=== PATIENT | male | born 1935 | race Hispanic/Latino ===

== ENCOUNTER 2018-12-14 11:36 | Emergency (ER) | payer MEDICARE ==
[2018-12-14 11:36] VITALS: BMI 27.1
[2018-12-14 11:41] VITALS: BP 178/89; PULSE 103; RESP 18; TEMP 97
[2018-12-14 11:51] VITALS: O2SAT 98
[2018-12-14] MEDS ORDERED: Tetanus/Diphtheria Toxoids 0.5 ml Syringe IM ONE ×2 (12:15→12:47)
--- NOTE | 2018-12-14 12:57 | ED PDOC ---
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 Denies LOC, N/V, neck pain, extremity pain, chest pain, abd pain, anticoagulant use. Past Medical History Reviewed: Historical Data, Nursing Documentation, Vital Signs Vital Signs: Last Vital Signs Temp 97 F L 12/14/18 11:40 Pulse 103 H 12/14/18 11:40 Resp 18 12/14/18 11:40 BP 178/89 H 12/14/18 11:40 Pulse Ox 98 12/14/18 11:48 - Medical History PMH: HTN, Hypercholesterolemia Denies: Chronic Kidney Disease - Surgical History Surgical History: No Surg Hx - Family History Family History: States: No Known Family Hx - Home Medications Home Medications: Ambulatory Orders Medication Instructions Recorded Aspirin [Ecotrin] 81 mg PO DAILY 01/05/18 Flaxseed Oil [Natural Flax Seed 1,000 mg PO DAILY 01/05/18 Oil] Losartan [Cozaar] 50 mg PO DAILY 01/05/18 Sheridan-3 Fatty Acids/Fish Oil [Fish 1 each PO DAILY 01/05/18 Oil 1,000 mg Capsule] Rosuvastatin Calcium [Crestor] 10 mg PO DAILY 01/05/18 Tamsulosin [Flomax] 0.4 mg PO DAILY 01/05/18 Ubiquinol [Active-Q] 200 mg PO DAILY 01/05/18 Amoxicillin/Clavulanate [Augmentin 1 tab PO BID #20 tab 12/14/18 500 MG-125 MG] - Allergies Allergies/Adverse Reactions: Allergies Allergy/AdvReac Type Severity Reaction Status Date / Time No Known Allergies Allergy Verified 12/14/18 11:48 Review of Systems ROS Statement: Except As Marked, All Systems Reviewed And Found Negative Physical Exam - Physical Exam Appears: Positive for: Well, Non-toxic, No Acute Distress Head Exam: Positive for: ATRAUMATIC, NORMAL INSPECTION, NORMOCEPHALIC Skin: Positive for: Normal Color, Warm. Negative for: Rash Eye Exam: Positive for: EOMI, Normal appearance, PERRL ENT: Positive for: TM Is/Are (no hemotympanum b/l), Other (nasal bone with tenderness, deformity and 1cm jagged laceration; no septal hematoma b/l; R maxillary 1st tooth is completely avulsed (pt states this is a prosthetic tooth) - pt. was given tooth ) Neck: Positive for: Normal, Painless ROM, Supple Cardiovascular/Chest: Positive for: Regular Rate, Rhythm, Chest Non Tender Respiratory: Positive for: Normal Breath Sounds Gastrointestinal/Abdominal: Positive for: Soft. Negative for: Tenderness Back: Positive for: Normal Inspection. Negative for: L CVA Tenderness, R CVA Tenderness, Vertebral Tenderness (including C-spine) Neurological/Psych: Positive for: Awake, Alert, Oriented (x3), Gait (steady, unassisted) - ECG O2 Sat by Pulse Oximetry: 98 Medical Decision Making Medical Decision Makin:[address] [place], [facility] [place] and requests patient follow up in his office tomorrow. He requests patient be prescribed Augmentin. Patient given CD copy of CT and advised to follow up in Dr. Hahn office tomorrow morning without fail. Patient verbalized correct understanding of follow up and care. Scribe Attestation: Documented by Sergio Adkins acting as a scribe for Chauncey ROBLES. Provider Scribe Attestation: All medical record entries made by the Scribe were at my direction and personally dictated by me. I have reviewed the chart and agree that the record accurately reflects my personal performance of the history, physical exam, medical decision making, and the department course for this patient. I have also personally directed, reviewed, and agree with the discharge instructions and disposition. Disposition - Clinical Impression Clinical Impression: Facial fracture, Nasal fracture, Head injury, Facial laceration - Patient ED Disposition Is Patient to be Admitted: No - Disposition Referrals: Tanner Mcdaniel MD [Staff Provider] - [facility] [Outside] Disposition: Routine/Home Disposition Time: 14:36 Condition: STABLE Additional Instructions: FOLLOW UP WITH YOUR PMD OR DR. MCDANIEL FOR FURTHER EVALUATION RETURN TO ED IMMEDIATELY IF SYMPTOMS WORSEN SUTURE REMOVAL IN 7 DA[address] FOLLOW UP WITH DR. MARGAUX HAHN TOMORROW WITHOUT FAIL (BRING YOUR COPY OF CT WITH YOU) [address] [place], [place] GARIMA VERA, thank you for letting us take care of you today. Your provider was Indira Bryant MD and you were treated for FALL: FACE INJURY. The emergency medical care you received today was directed at your acute symptoms. If you were prescribed any medication, please fill it and take as directed. It may take several days for your symptoms to resolve. Return to the Emergency Department if your symptoms worsen, do not improve, or if you have any other problems. Please contact your doctor or call one of the physicians/clinics you have been referred to that are listed on the Patient Visit Information form that is included in your discharge packet. Bring any paperwork you were given at discharge with you along with any medications you are taking to your follow up visit. Our treatment cannot replace ongoing medical care by a primary care provider outside of the emergency department. Thank you for allowing the [facility] team to be part of your care today. If you had an X-Ray or CT scan: A Radiologist will review the ED reading if any change in treatment is needed we will contact you. If you had a blood, urine, or wound culture: It will take several days for the results, if any change in treatment is needed we will contact you. If you had an STI test: It will take 48 hours for the results. Please call after 1 week if you have not heard back. Prescriptions: Amoxicillin/Clavulanate [Augmentin 500 MG-125 MG] 1 tab PO BID #20 tab Instructions: Closed Head Injury (DC), Laceration Repair With Stitches (DC), Nose Fracture (DC), Skull and Facial Fractures (DC) Forms: [employer] (Chinese) Print Language: BELARUSIAN
--- NOTE | 2018-12-14 13:00 | CT ---
Date of service: 12/14/2018 PROCEDURE: CT HEAD WITHOUT CONTRAST. HISTORY: trauma COMPARISON: None available. TECHNIQUE: Axial computed tomography images were obtained through the head/brain without intravenous contrast. Radiation dose: Total exam DLP = 1072.68 mGy-cm. This CT exam was performed using one or more of the following dose reduction techniques: Automated exposure control, adjustment of the mA and/or kV according to patient size, and/or use of iterative reconstruction technique. FINDINGS: HEMORRHAGE: No intracranial hemorrhage. BRAIN: There are mild chronic microangiopathic changes. There is nonspecific coarse calcification in the right parietal subcortical white matter. There is no mass, mass effect or abnormal extra-axial fluid collection. There is no territorial infarction. The midline sagittal structures are normal. VENTRICLES: There is moderate age-related global parenchymal volume loss and proportionate enlargement of the ventricles and cortical sulci. CALVARIUM: There is no calvarial fracture or extracranial soft tissue swelling. PARANASAL SINUSES: There is complete opacification of the right maxillary sinus with high attenuation fluid. There is an acute nondisplaced fractures in the right posterior maxillary wall. There are retention cysts/polyps in the left maxillary sinus. There is mild mucosal thickening in the anterior ethmoid air cells. MASTOID AIR CELLS: Predominantly clear. OTHER FINDINGS: None. IMPRESSION: No acute intracranial abnormality. Acute nondisplaced fracture in the right posterior maxillary wall with hemorrhagic fluid in the right maxillary sinus.
--- NOTE | 2018-12-14 13:14 | CT ---
Date of service: 12/14/2018 PROCEDURE: CT Cervical Spine without contrast HISTORY: trauma COMPARISON: None available. TECHNIQUE: Axial computed tomography images were obtained of the cervical spine without the use of intravenous contrast. Coronal and sagittal reformatted images were created and reviewed. Radiation dose: Total exam DLP = 0.0 mGy-cm. This CT exam was performed using one or more of the following dose reduction techniques: Automated exposure control, adjustment of the mA and/or kV according to patient size, and/or use of iterative reconstruction technique. FINDINGS: VERTEBRAE: There is normal alignment of the cervical vertebral bodies. There is normal cervical lordosis. Vertebral height is normal. Bone mineralization is normal. There is no acute fracture or traumatic anterior listhesis. The craniocervical junction is normal. There is mild degenerative osteoarthrosis in the atlantoaxial joint. DISCS/SPINAL CANAL/NEURAL FORAMINA: There is multilevel degenerative disc disease due to combination of disc osteophyte complexes, uncovertebral joint hypertrophy and multilevel facet arthropathy, worse at C3-4 with small central disc protrusion without central spinal canal stenosis. Severe right facet arthropathy in conjunction with uncovertebral joint hypertrophy result in mild right neural foraminal narrowing. No central spinal canal stenosis. PARASPINAL SOFT TISSUES: Unremarkable. OTHER FINDINGS: None. IMPRESSION: No acute fracture or traumatic anterior listhesis.
--- NOTE | 2018-12-14 13:24 | CT ---
Date of service: 12/14/2018 PROCEDURE: CT MAXILLOFACIAL BONES WITHOUT CONTRAST HISTORY: trauma COMPARISON: None available. TECHNIQUE: Contiguous axial CT images of the maxillofacial bones were obtained. Coronal and sagittal reformats were generated. Radiation dose: Total exam DLP = 845.69 mGy-cm. This CT exam was performed using one or more of the following dose reduction techniques: Automated exposure control, adjustment of the mA and/or kV according to patient size, and/or use of iterative reconstruction technique. FINDINGS: NASAL BONES: Acute comminuted nondisplaced fractures in bilateral anterior nasal bones. Moderate nasal soft tissue swelling ORBITS: No acute fracture. The globes are symmetric. No evidence of lens dislocation or orbital hemorrhage. PARANASAL SINUSES/ MASTOIDS: Hemorrhagic fluid in the right maxillary sinus and right ethmoid air cells, right nasopharynx and right nasal cavity. Retention cysts/polyps in the left maxillary sinus. There are several small foci of air in the right retro antral fat. The remaining included paranasal sinuses are clear. MAXILLA: Acute nondisplaced fracture in the right posterior maxillary wall and medial maxillary wall. MANDIBLE/ TEMPOROMANDIBULAR JOINTS: No acute fracture or dislocation. SKULL BASE: Unremarkable. TEMPORAL BONES: Middle ears and mastoid grossly unremarkable. OTHER FINDINGS: None. IMPRESSION: 1. Acute nondisplaced fractures in the right posterior and medial maxillary freitas with hemorrhagic fluid and air in the right maxillary sinus and ethmoid air cells as well as right retro antral maxillary fat. 2. Acute comminuted nondisplaced fractures in bilateral anterior nasal bones with surrounding nasal soft tissue swelling.
[2018-12-14] MEDS ORDERED: Lidocaine 1% (10 ml) Inj INFIL ONE (13:34)
[2018-12-14] MEDS ORDERED: Lidocaine Hydrochloride 1% 10 ML ONE (13:36)
[2018-12-14] MEDS ORDERED: Bacitracin 500 Units/gm Oint Foilpak UD ONE (14:48)
[2018-12-14] MEDS ORDERED: Bacitracin 500 Units/gm Oint Foilpak UD TOP STA (15:13)
== END 2018-12-14 15:19 | disposition home or self-care (01) ==
LOC: H.ER 11:36
DX: S01.21XA Laceration without foreign body of nose, initial encounter (principal); S01.81XA Laceration without foreign body of other part of head, initial encounter; S02.2XXA Fracture of nasal bones, initial encounter for closed fracture; W01.0XXA Fall on same level from slipping, tripping and stumbling without subsequent striking against object, initial encounter; Y92.480 Sidewalk as the place of occurrence of the external cause; E78.00 Pure hypercholesterolemia, unspecified; I10 Essential (primary) hypertension